=== PATIENT | male | born 1995 | race Two or more races ===

== ENCOUNTER 2019-02-15 13:42 | Emergency (ER) | payer SELFPAY ==
[~2019-02-15] VITALS: Ht 185.4 cm; Wt 91.6 kg
--- NOTE | 2019-02-15 14:15 | NUR ---
PATIENT AWAKE ALERT NON DISTRESS PAIN TO LOWER BACK AND LEFT KNEE ,PA @ BEDSIDE
--- NOTE | 2019-02-15 15:45 | NUR ---
PATIENT DC HOME INSTRUCTION GIVEN AGREES TO CALL PMD IN 2 DAYS VERBALIZED UNDERSTNDING
[2019-02-15 15:46] VITALS: BP 134/67
== END 2019-02-15 16:03 | disposition home or self-care (01) ==
LOC: ER 13:53
DX: S43.492A Other sprain of left shoulder joint, initial encounter (principal); S16.1XXA Strain of muscle, fascia and tendon at neck level, initial encounter; S39.012A Strain of muscle, fascia and tendon of lower back, initial encounter; S80.212A Abrasion, left knee, initial encounter; S80.211A Abrasion, right knee, initial encounter; V49.49XA Driver injured in collision with other motor vehicles in traffic accident, initial encounter; Y93.89 Activity, other specified; Y92.413 State road as the place of occurrence of the external cause; Y99.8 Other external cause status
CPT/HCPCS: 72050-TC; 72110-TC; 73030-TC

== ENCOUNTER 2019-02-15 19:51 | Emergency (ER) | payer SELFPAY ==
[~2019-02-15] VITALS: Ht 185.4 cm; Wt 91.6 kg
--- NOTE | 2019-02-15 20:00 | NUR ---
PT WILLI, CALLED BACK FOR CT. PT AAOX4. AMBULATORY WITH STEADY GAIT. NO ACUTE DISTRESS NOTED AT THIS TIME. WILL CONTINUE TO MONITOR.
--- NOTE | 2019-02-15 20:10 | NUR ---
PT BROUGHT BY RADIOLOGY TO CT
[2019-02-15 21:05] VITALS: BP 118/79
== END 2019-02-15 21:05 | disposition home or self-care (01) ==
LOC: ER 19:53
DX: S13.4XXA Sprain of ligaments of cervical spine, initial encounter (principal); X58.XXXA Exposure to other specified factors, initial encounter; Y93.89 Activity, other specified; Y92.89 Other specified places as the place of occurrence of the external cause; Y99.8 Other external cause status
CPT/HCPCS: 72125-TC